=== PATIENT | male | born 1945 | race Caucasian/White ===

== ENCOUNTER → 2018-01-23 09:54 | Outpatient (CLI) | payer MEDICARE, OTHER, SELFPAY ==
[2018-01-23 10:57] LABS: Add Manual Diff / Slide Review NO; Basophils Percent Auto 0.3 % (0-2); Eosinophils Percent Auto 1.5 % (2-4); Hematocrit 42.2 % (41-53); Hemoglobin 14.9 g/dL (13.5-17.5); Lymphocytes Percent Auto 30.8 % (25-40); Mean Corpuscular HGB Conc 35.3 % (30-36); Mean Corpuscular Hemoglobin 34.6 PG (26-34); Mean Corpuscular Volume 98.1 fL (80-100); Monocytes Percent Auto 11.3 % (3-14); Neutrophils Absolute Auto 4500 /uL (3000-5900); Neutrophils Percent Auto 56.1 % (50-75); Platelet Count 233 X10^3/uL (150-400); Red Cell Distribution Width 12.9 % (11.6-14.8); White Blood Cell Count 8.1 X10^3/uL (4.5-11.0)
[2018-01-23 11:10] LABS: Alanine Aminotransferase 28 IU/L (21-72); Albumin 4.7 g/dL (3.5-5.0); Albumin Globulin Ratio 1.6 (1.0-2.8); Alkaline Phosphatase 46 U/L (38-126); Aspartate Aminotransferase 25 IU/L (17-59); BUN Creatinine Ratio 16.3 (6-22); Bilirubin Total 0.5 mg/dL (0.2-1.3); Blood Urea Nitrogen 13 mg/dL (9-20); Calcium 9.6 mg/dL (8.4-10.2); Carbon Dioxide 22 mmol/L (22-32); Chloride 101 mmol/L (98-107); Cholesterol 156 mg/dL (140-199); Estimated Glomerular Filt Rate > 60.0 mL/min (>60); Glucose 97 mg/dL (80-110); HDL Cholesterol 64 mg/dL (40-60); HEMOLYSIS < 15 (0-50); LDL Cholesterol Calculated 73 mg/dL (<100); Potassium 3.8 mmol/L (3.4-5.1); Sodium 137 mmol/L (137-145); Total Protein 7.7 g/dL (6.3-8.2); Triglycerides 93 mg/dL (35-150)
[2018-01-23 12:10] LABS: Appearance Urine UA CLEAR; Bilirubin Urine UA NEGATIVE (NEGATIVE); Color Urine UA YELLOW; Glucose Urine UA NEGATIVE (Normal); Ketones Urine UA NEGATIVE (NEGATIVE); Leukocyte Esterase Urine UA NEGATIVE (NEGATIVE); Nitrite Urine UA Negative (Negative); Occult Blood Urine UA NEGATIVE (Negative); Protein Urine UA NEGATIVE (Negative); Urobilinogen Urine UA 0.2 E.U./dL (0.2)
== END ==
PROVIDERS: Family Provider Family Medicine; PCP Family Medicine; Visit Provider Family Medicine
DX: I10 Essential (primary) hypertension (principal); E78.2 Mixed hyperlipidemia; Z51.81 Encounter for therapeutic drug level monitoring
CPT/HCPCS: 36415; 80053; 80061; 81003; 84443; 85025

== ENCOUNTER → 2018-04-19 10:26 | Outpatient (CLI) | payer MEDICARE, OTHER, SELFPAY ==
[2018-04-19 11:05] LABS: Add Manual Diff / Slide Review NO; Basophils Percent Auto 0.3 % (0-2); Eosinophils Percent Auto 0.8 % (2-4); Hematocrit 43.7 % (41-53); Hemoglobin 15.3 g/dL (13.5-17.5); Lymphocytes Percent Auto 24.5 % (25-40); Mean Corpuscular Hemoglobin 34.4 PG (26-34); Mean Corpuscular Volume 98.2 fL (80-100); Monocytes Percent Auto 10.1 % (3-14); Neutrophils Absolute Auto 6200 /uL (3000-5900); Neutrophils Percent Auto 64.3 % (50-75); Platelet Count 249 X10^3/uL (150-400); Red Blood Cell Count 4.45 X10^6/uL (4.5-5.9); Red Cell Distribution Width 13.1 % (11.6-14.8); White Blood Cell Count 9.6 X10^3/uL (4.5-11.0)
[2018-04-19 11:13] LABS: Alanine Aminotransferase 24 IU/L (21-72); Albumin 4.9 g/dL (3.5-5.0); Albumin Globulin Ratio 1.7 (1.0-2.8); Alkaline Phosphatase 48 U/L (38-126); Aspartate Aminotransferase 23 IU/L (17-59); BUN Creatinine Ratio 14.4 (6-22); Bilirubin Total 0.5 mg/dL (0.2-1.3); Blood Urea Nitrogen 13 mg/dL (9-20); Calcium 9.8 mg/dL (8.4-10.2); Carbon Dioxide 25 mmol/L (22-32); Chloride 102 mmol/L (98-107); Cholesterol 156 mg/dL (140-199); Estimated Glomerular Filt Rate > 60.0 mL/min (>60); Globulin 2.9 g/dL (1.7-4.1); Glucose 98 mg/dL (80-110); HDL Cholesterol 79 mg/dL (40-60); HEMOLYSIS < 15 (0-50); LDL Cholesterol Calculated 63 mg/dL (<100); Potassium 3.9 mmol/L (3.4-5.1); Sodium 142 mmol/L (137-145); Total Protein 7.8 g/dL (6.3-8.2); Triglycerides 68 mg/dL (35-150)
[2018-04-19 11:18] LABS: Appearance Urine UA CLEAR; Bilirubin Urine UA NEGATIVE (NEGATIVE); Color Urine UA YELLOW; Glucose Urine UA NEGATIVE (Normal); Ketones Urine UA NEGATIVE (NEGATIVE); Leukocyte Esterase Urine UA NEGATIVE (NEGATIVE); Nitrite Urine UA Negative (Negative); Occult Blood Urine UA NEGATIVE (Negative); Protein Urine UA NEGATIVE (Negative); Specific Gravity Urine UA 1.015 (1.000-1.035); Urobilinogen Urine UA 0.2 E.U./dL (0.2); pH Urine UA 6.5 (4.5-8.0)
[2018-04-19 11:49] LABS: Thyroid Stimulating Hormone 0.92 uIU/mL (0.47-4.68)
== END ==
PROVIDERS: PCP Family Medicine; Visit Provider Family Medicine
DX: E78.5 Hyperlipidemia, unspecified (principal)
CPT/HCPCS: 36415; 80053; 80061; 81003; 84443; 85025

== ENCOUNTER → 2018-11-15 10:11 | Outpatient (CLI) | payer MEDICARE, OTHER, SELFPAY ==
[2018-11-15 11:01] LABS: Add Manual Diff / Slide Review NO; Basophils Absolute Auto 0 /uL (0-100); Basophils Percent Auto 0.5 % (0-2); Eosinophils Absolute Auto 200 /uL (0-450); Eosinophils Percent Auto 2.5 % (2-4); Hematocrit 43.8 % (41-53); Hemoglobin 15.2 g/dL (13.5-17.5); Lymphocytes Absolute Auto 2600 /uL (1100-4500); Lymphocytes Percent Auto 33.3 % (25-40); Mean Corpuscular HGB Conc 34.8 % (30-36); Mean Corpuscular Hemoglobin 34.1 PG (26-34); Mean Corpuscular Volume 97.9 fL (80-100); Monocytes Absolute Auto 900 /uL (0-900); Neutrophils Absolute Auto 4100 /uL (1500-7000); Neutrophils Percent Auto 52.7 % (50-75); Platelet Count 225 X10^3/uL (150-400); Red Blood Cell Count 4.47 X10^6/uL (4.5-5.9); Red Cell Distribution Width 12.7 % (11.6-14.8); White Blood Cell Count 7.8 X10^3/uL (4.5-11.0)
[2018-11-15 11:05] LABS: Alanine Aminotransferase 23 IU/L (21-72); Albumin 4.6 g/dL (3.5-5.0); Albumin Globulin Ratio 1.6 (1.0-2.8); Alkaline Phosphatase 48 U/L (38-126); Aspartate Aminotransferase 22 IU/L (17-59); BUN Creatinine Ratio 18.8 (6-22); Bilirubin Total 0.6 mg/dL (0.2-1.3); Blood Urea Nitrogen 15 mg/dL (9-20); Calcium 9.5 mg/dL (8.4-10.2); Carbon Dioxide 24 mmol/L (22-32); Chloride 101 mmol/L (98-107); Cholesterol 159 mg/dL (140-199); Estimated Glomerular Filt Rate > 60.0 mL/min (>60); Globulin 2.9 g/dL (1.7-4.1); Glucose 95 mg/dL (80-110); HDL Cholesterol 65 mg/dL (40-60); HEMOLYSIS < 15 (0-50); LDL Cholesterol Calculated 73 mg/dL (<100); Potassium 3.6 mmol/L (3.4-5.1); Sodium 136 mmol/L (137-145); Total Protein 7.5 g/dL (6.3-8.2); Triglycerides 104 mg/dL (35-150)
[2018-11-15 11:28] LABS: Thyroid Stimulating Hormone 1.04 uIU/mL (0.47-4.68)
== END ==
PROVIDERS: PCP Family Medicine; Visit Provider Family Medicine
DX: E78.2 Mixed hyperlipidemia (principal); F41.9 Anxiety disorder, unspecified; F51.01 Primary insomnia; I10 Essential (primary) hypertension; Z79.899 Other long term (current) drug therapy
CPT/HCPCS: 36415; 80053; 80061; 84443; 85025

== ENCOUNTER → 2019-05-20 11:00 | Outpatient (CLI) | payer MEDICARE, OTHER, SELFPAY ==
[2019-05-20 12:05] LABS: Add Manual Diff / Slide Review NO; Basophils Absolute Auto 0 /uL (0-100); Basophils Percent Auto 0.3 % (0-2); Eosinophils Absolute Auto 200 /uL (0-450); Eosinophils Percent Auto 2.7 % (2-4); Hematocrit 43.6 % (41-53); Hemoglobin 15.4 g/dL (13.5-17.5); Lymphocytes Absolute Auto 2600 /uL (1100-4500); Lymphocytes Percent Auto 30.7 % (25-40); Mean Corpuscular HGB Conc 35.2 % (30-36); Mean Corpuscular Hemoglobin 34.6 PG (26-34); Mean Corpuscular Volume 98.3 fL (80-100); Monocytes Absolute Auto 1000 /uL (0-900); Monocytes Percent Auto 11.6 % (3-14); Neutrophils Absolute Auto 4600 /uL (1500-7000); Neutrophils Percent Auto 54.7 % (50-75); Platelet Count 236 X10^3/uL (150-400); Red Blood Cell Count 4.44 X10^6/uL (4.5-5.9); Red Cell Distribution Width 12.9 % (11.6-14.8); White Blood Cell Count 8.3 X10^3/uL (4.5-11.0)
[2019-05-20 12:33] LABS: Alanine Aminotransferase 28 IU/L (<50); Albumin 4.9 g/dL (3.5-5.0); Albumin Globulin Ratio 1.7 (1.0-2.8); Alkaline Phosphatase 48 U/L (38-126); Aspartate Aminotransferase 30 IU/L (17-59); BUN Creatinine Ratio 16.3 (6-22); Bilirubin Total 0.7 mg/dL (0.2-1.3); Blood Urea Nitrogen 13 mg/dL (9-20); Calcium 9.7 mg/dL (8.4-10.2); Carbon Dioxide 23 mmol/L (22-32); Chloride 102 mmol/L (98-107); Cholesterol 177 mg/dL (140-199); Estimated Glomerular Filt Rate > 60.0 mL/min (>60); Globulin 2.9 g/dL (1.7-4.1); Glucose 100 mg/dL (80-110); HDL Cholesterol 65 mg/dL (40-60); HEMOLYSIS < 15 (0-50); LDL Cholesterol Calculated 86 mg/dL (<100); Potassium 3.6 mmol/L (3.4-5.1); Sodium 137 mmol/L (137-145); Total Protein 7.8 g/dL (6.3-8.2); Triglycerides 130 mg/dL (35-150)
[2019-05-20 12:57] LABS: Thyroid Stimulating Hormone 1.27 uIU/mL (0.47-4.68)
== END ==
PROVIDERS: PCP Family Medicine; Visit Provider Family Medicine
DX: E78.2 Mixed hyperlipidemia (principal); F41.9 Anxiety disorder, unspecified; F51.01 Primary insomnia; I10 Essential (primary) hypertension; Z79.899 Other long term (current) drug therapy
CPT/HCPCS: 36415; 80053; 80061; 84443; 85025

== ENCOUNTER → 2019-11-21 10:02 | Outpatient (CLI) | payer MEDICARE, SELFPAY ==
[2019-11-21 12:00] LABS: Add Manual Diff / Slide Review NO; Basophils Absolute Auto 0 /uL (0-100); Basophils Percent Auto 0.3 % (0-2); Eosinophils Absolute Auto 200 /uL (0-450); Eosinophils Percent Auto 1.6 % (2-4); Hematocrit 45.1 % (41-53); Lymphocytes Absolute Auto 2500 /uL (1100-4500); Mean Corpuscular HGB Conc 35.5 % (30-36); Mean Corpuscular Hemoglobin 34.6 PG (26-34); Mean Corpuscular Volume 97.3 fL (80-100); Monocytes Absolute Auto 1100 /uL (0-900); Monocytes Percent Auto 11.4 % (3-14); Neutrophils Absolute Auto 5900 /uL (1500-7000); Neutrophils Percent Auto 60.7 % (50-75); Platelet Count 236 X10^3/uL (150-400); Red Blood Cell Count 4.64 X10^6/uL (4.5-5.9); Red Cell Distribution Width 13.2 % (11.6-14.8); White Blood Cell Count 9.7 X10^3/uL (4.5-11.0)
[2019-11-21 12:23] LABS: Alanine Aminotransferase 27 IU/L (<50); Albumin 4.9 g/dL (3.5-5.0); Albumin Globulin Ratio 1.5 (1.0-2.8); Alkaline Phosphatase 52 U/L (38-126); Aspartate Aminotransferase 31 IU/L (17-59); BUN Creatinine Ratio 13.8 (6-22); Bilirubin Total 0.6 mg/dL (0.2-1.3); Blood Urea Nitrogen 12 mg/dL (9-20); Calcium 10.1 mg/dL (8.4-10.2); Carbon Dioxide 22 mmol/L (22-32); Chloride 103 mmol/L (98-107); Cholesterol 163 mg/dL (140-199); Estimated Glomerular Filt Rate > 60.0 mL/min (>60); Globulin 3.2 g/dL (1.7-4.1); Glucose 97 mg/dL (80-110); HDL Cholesterol 54 mg/dL (40-60); HEMOLYSIS < 15 (0-50); LDL Cholesterol Calculated 76 mg/dL (<100); Potassium 4.1 mmol/L (3.4-5.1); Sodium 137 mmol/L (137-145); Total Protein 8.1 g/dL (6.3-8.2); Triglycerides 165 mg/dL (35-150)
[2019-11-21 12:50] LABS: Prostate Specific Antigen Scrn 4.42 ng/mL (0.1-4.0)
== END ==
PROVIDERS: PCP Family Medicine; Referring Provider Family Medicine; Visit Provider Family Medicine
DX: E78.2 Mixed hyperlipidemia (principal); I10 Essential (primary) hypertension; R97.20 Elevated prostate specific antigen [PSA]
CPT/HCPCS: 36415; 80053; 80061; 85025; G0103

== ENCOUNTER 2020-01-25 13:41 | Emergency (ER) | payer MEDICARE, SELFPAY ==
[2020-01-25 13:53] VITALS: BP 149/79; PULSE 110; RESP 16; TEMP 36.9; O2SAT 94; BMI 29.0
[2020-01-25 15:03] VITALS: BP 123/64; PULSE 64; TEMP 36.9; O2SAT 94
[2020-01-25] MEDS: AMOXICILLIN 250 MG CAPSULE 1000 MG PO (15:07)
--- NOTE | 2020-01-25 15:11 | PC.NURSE ---
Left jaw pain and swelling.
--- NOTE | 2020-01-25 15:29 | ED.DENTAL ---
HPI - Dental/Oral <BURKE Piña - Last Filed: 01/25/20 15:42> General Chief complaint: Dental/Oral Stated complaint: Pain in Lf side lower jaw swelling drawing Time Seen by Provider: 01/25/20 13:43 History of Present Illness HPI Narrative: 74yo male with a history of anxiety, HLD, presents to the emergency department for left facial pain and swelling. Patient states approximately 1 week ago he had part of his implant removed from his trauma, the dentist was unable to remove the completely due to it being imbedded into the bone. He was then referred to a oral surgeon which has appointment scheduled for February. Patient reports the pain is a dull aching with occasional sharp stabbing episodes that radiates up to his ear. This morning he woke up and noticed his left lip with swelling and he was worried that something was worsening. He seen his primary care provider 4 days ago and was given a small amount of Vicodin, he has been taking half a pill which has helped. Patient has also been taking ibuprofen which helps decrease the pain. Patient states last week he had an x-ray at the dentist which showed no obvious deformities or bone infection. Patient denies any fevers, difficulty speaking, limb weakness, chest pain, shortness of breath, dizziness, weakness, nausea, vomiting, diarrhea, or any other concerns. Related Data Home Medications Medication Instructions Recorded Confirmed multivitamin [Multiple Vitamins] 1 tab PO QDAY #0 tab 02/22/16 01/22/20 simethicone [Gas-X Extra Strength] 125 mg PO PRN PRN #0 02/22/16 01/22/20 Previous Rx's Medication Instructions Recorded amlodipine 10 mg-valsartan 160 1 tab PO DAILY #90 tab 11/29/19 mg-hydrochlorothiazide 25 mg tablet famciclovir 250 mg tablet 250 - 500 mg PO QDAY #90 tab 11/29/19 fenofibrate 160 mg tablet 160 mg PO DAILY #90 tab 11/29/19 zolpidem 10 mg tablet See Rx Instructions .ROUTE 11/29/19 .COMPLEX #60 tablet alprazolam 1 mg tablet See Rx Instructions .ROUTE 12/18/19 .COMPLEX #30 tab amoxicillin 500 mg PO Q8H 3 Days #9 cap 01/25/20 hydrocodone-acetaminophen [[place]] 1 tab PO Q8H PRN #6 tab 01/25/20 meloxicam 7.5 mg PO DAILY #6 tab 01/25/20 Allergies Allergy/AdvReac Type Severity Reaction Status Date / Time No Known Drug Allergies Allergy Verified 01/22/20 14:03 Review of Systems <BURKE Piña - Last Filed: 01/25/20 15:42> Review of Systems Narrative: REVIEW OF SYSTEMS: GENERAL: Denies fever or chills. HENT: No head trauma. Complains of left lower tooth pain and left lower lip swelling, see HPI. EYES: No vision changes. CARDIOVASCULAR: No chest pain or syncope. RESPIRATORY: No shortness of breath or cough. GASTROINTESTINAL: No nausea, vomiting, diarrhea, or constipation. MUSCULOSKELETAL: No pain, weakness, or deformities. INTEGUMENTARY: No rash, lesions, or pruritus. NEURO: No numbness or tingling. PSYCH: No behavior or mood changes. Patient History <BURKE Piña - Last Filed: 01/25/20 15:42> Medical History Anxiety (Chronic 2005) Dental implant pain (Acute) Hemorrhoids (Resolved 1966) Herpes (Chronic 2004) Hyperlipemia (Chronic Unknown) Hypertension (Chronic Unknown) Inguinal hernia (Resolved ~02/2016) Skin cancer (Resolved 2014) Surgical History Hx of hernia repair (Resolved 05/2016) Family History Mother Cancer Social History Smoking Status: Current every day smoker Tobacco: How many years used: 60 alcohol intake: current (6 pack of beer per day) Smoking Status: Current every day smoker tobacco type: cigarettes alcohol intake frequency: 3 or more drinks per day Alcohol type: beer Substance Use Type: marijuana Exam <BURKE Piña - Last Filed: 01/25/20 15:42> Initial Vital Signs Initial Vital Signs: Vital Signs Temperature 98.4 F 01/25/20 13:53 Pulse Rate 110 H 01/25/20 13:53 Respiratory Rate 16 01/25/20 13:53 Blood Pressure 149/79 H 01/25/20 13:53 Pulse Oximetry 94 01/25/20 13:53 PHYSICAL EXAMINATION: GENERAL: Well groomed, alert, and cooperative. Rambling speech, Answers questions promptly and appropriately. Vital signs noted. HENT: Normocephalic, atraumatic. Left lower gingiva erythematous at approximate tooth #19, implant visualized. Minor amount of left lower cheek swelling, moderate amount of left sided lip swelling, increased erythema, tender to palpation. Left TM intact without erythema, crisp light reflex present. EYES: Conjunctiva pink, sclera white, no periorbital swelling. NECK: No lymphadenopathy. CHEST: Normal to inspection and without deformities. CARDIOVASCULAR: S1 and S2 sounds normal. Regular rate and rhythm, no murmurs, clicks, or bruits. No pedal edema. RESPIRATORY: Normal respiratory rate, trachea midline, airway patent. No stridor, nasal flaring or accessory muscle use. Lungs are clear in all johnson without wheeze, rhonchi, or crackles. MUSCULOSKELETAL: Normal gait and coordination. Equal tone and mass bilaterally. EXTREMITIES: CMS intact. Moves all extremities. SKIN: Warm, dry, soft, appropriate color for ethnicity. No lesions, rashes, or wounds. NEURO: Alert and Oriented X 3. Good coordination. No ataxia, or sensory deficits, or cognitive issues. PSYCH: Appropriate affect and mood. <Neo Rm DO - Last Filed: 01/25/20 18:59> Initial Vital Signs Initial Vital Signs: Vital Signs Temperature 98.4 F 01/25/20 13:53 Pulse Rate 110 H 01/25/20 13:53 Respiratory Rate 16 01/25/20 13:53 Blood Pressure 149/79 H 01/25/20 13:53 Pulse Oximetry 94 01/25/20 13:53 Scores <BURKE Piña - Last Filed: 01/25/20 15:42> NIH Stroke Scale Level of Conciousness: Alert, keenly responsive Ask month/age: Answers both questions correctly. Open/close eyes, close hand: Performs both tasks correctly Best gaze horizontal: Normal Visual johnson: No visual loss Facial palsy: Normal symetrical movement Left arm drift: No drift for full 10 sec Right arm drift: No drift for full 10 sec Left leg drift: No drift for full 10 sec Right leg drift: No drift for full 10 sec Limb ataxia: Absent Sensory on face/arms/legs: Normal, no sensory loss Best language: No aphasia, normal Dysarthria: Normal Extinction or inattention: No abnormality Total NIH Stroke scale score: 0 Course <BURKE Piña - Last Filed: 01/25/20 15:42> Course Course Narrative: Patient was given the initial dose of amoxicillin in the emergency department. He was extensively counseled about these of his pain medications. Follow-up was encouraged. Orders Ordered: Discontinued Medications Hydrocodone Bitart/Acetaminophen ([place] 5/325) 1 tab PO NOW ONE Stop: 01/25/20 14:45 Last Admin: 01/25/20 14:47 Dose: Not Given Documented by: FERMIN Amoxicillin (Trimox) 1,000 mg PO NOW ONE Stop: 01/25/20 14:48 Last Admin: 01/25/20 15:07 Dose: 1,000 mg Documented by: FERMIN Vital Signs Vital signs: Vital Signs - 8 hr 01/25/20 13:53 01/25/20 15:03 Temperature 98.4 F 98.4 F Pulse Rate 110 H 64 Respiratory Rate 16 Blood Pressure 149/79 H 123/64 Pulse Oximetry 94 94 <Neo Rm DO - Last Filed: 01/25/20 18:59> Orders Ordered: Discontinued Medications Hydrocodone Bitart/Acetaminophen ([place] 5/325) 1 tab PO NOW ONE Stop: 01/25/20 14:45 Last Admin: 01/25/20 14:47 Dose: Not Given Documented by: FERMIN Amoxicillin (Trimox) 1,000 mg PO NOW ONE Stop: 01/25/20 14:48 Last Admin: 01/25/20 15:07 Dose: 1,000 mg Documented by: FERMIN Vital Signs Vital signs: Vital Signs - 8 hr 01/25/20 13:53 01/25/20 15:03 Temperature 98.4 F 98.4 F Pulse Rate 110 H 64 Respiratory Rate 16 Blood Pressure 149/79 H 123/64 Pulse Oximetry 94 94 MDM - Dental/Oral <BURKE Piña - Last Filed: 01/25/20 15:42> Medical Records Attestation: I reviewed the patient's medical records. Lab Data Attestation: I reviewed the patient's lab results. MDM Narrative Medical decision making narrative: 74-year-old male presenting to the emergency department for left tooth pain and lip swelling. Given recent history, recent swelling, and increased pain, I suspect patient may have developed an infection at this time. Patient was started on amoxicillin. We discussed pain medication, he was discouraged from using frequent ibuprofen due to GI side effects. Patient was given a week of meloxicam to help control pain. He was given a very small dose of Vicodin for breakthrough pain, we discussed taking half of this and only when needed as a can cause unfortunate side effects and dependence. Patient was counseled not to drive with this medication. He was encouraged to follow up with his surgeon as scheduled. Return precautions given for new or worsening symptoms. Patient agreed to plan of care verbalized understanding. Discharge Plan Departure Patient Disposition: Home Clinical Impression: Dental infection Discharge Date/Time: 01/25/20 15:12 Instructions: DI for Dental Pain Activity Restrictions/Additional Instructions: Thank you for entrusting me with your care today. As discussed, I believe the swelling and pain in your lip is caused by an infection. I prescribed you antibiotics, please take these as directed. Take meloxicam daily for the next week, do not take ibuprofen with this medication. Use hydrocodone/acetaminophen, a half a pill every 4-6 hours as needed for severe pain. Do not take additional Tylenol/acetaminophen with this medication. [facility] in [place]. Keep your appointment with your dentist. Return emergency department for any new or worsening symptoms such as facial droop, limb weakness, chest pain, shortness of breath, or any other concerns. Prescriptions: New amoxicillin 500 mg capsule 500 mg PO Q8H 3 Days Qty: 9 RF: 0 meloxicam 7.5 mg tablet 7.5 mg PO DAILY Qty: 6 RF: 0 hydrocodone-acetaminophen [[place]] 5-325 mg tablet 1 tab PO Q8H PRN (Reason: pain) Qty: 6 RF: 0 No Action multivitamin [Multiple Vitamins] 1 EACH tablet 1 tab PO QDAY Qty: 0 RF: 0 simethicone [Gas-X Extra Strength] 125 MG capsule 125 mg PO PRN PRNQty: 0 RF: 0 alprazolam 1 mg tablet See Rx Instructions .ROUTE .COMPLEX Qty: 30 RF: 0 upnnrnydcd-yflzxlpkx-jyvahkfpl 10-160-25 mg tablet 1 tab PO DAILY Qty: 90 RF: 1 zolpidem 10 mg tablet See Rx Instructions .ROUTE .COMPLEX Qty: 60 RF: 0 famciclovir 250 mg tablet 250 - 500 mg PO QDAY Qty: 90 RF: 3 fenofibrate 160 mg tablet 160 mg PO DAILY Qty: 90 RF: 1 Referrals: Andrea Novak DO [Primary Care Provider] - <Neo Rm DO - Last Filed: 01/25/20 18:59> Cosign ED Attending Cosmoature Attestation: I was immediately available in the department for consultation. This documentation has been reviewed and I agree with assessment and plan. Supervised by Neo Rm DO
== END 2020-01-25 15:12 | disposition home or self-care (01) ==
PROVIDERS: Emergency Provider Nurse Practitioner; PCP Family Medicine
DX: K04.7 Periapical abscess without sinus (principal)
CPT/HCPCS: 99282; 99283

== ENCOUNTER 2020-02-02 07:54 | Emergency (ER) | payer MEDICARE, SELFPAY ==
[2020-02-02 08:04] VITALS: BP 143/84; PULSE 120; RESP 18; TEMP 36.9; O2SAT 95
--- NOTE | 2020-02-02 08:04 | ED.DENTAL ---
HPI - Dental/Oral General Chief complaint: Dental/Oral Stated complaint: Oral infection, swelling of jaw/neck Time Seen by Provider: 02/02/20 08:04 Source: patient Mode of arrival: Ambulatory Limitations: no limitations History of Present Illness HPI Narrative: The patient is here with swelling to the neck. He has recently had a left molar implant extracted, his dentist as referring him to a specialist to extract another implant. He was seen here several days ago with a dental infection, treated with amoxicillin. He has completed the course of amoxicillin. He now has the anterior neck edema. The anterior neck edema started with tingling in his left mouth. There was no lip or tongue edema. He has no difficulty swallowing. He has no dyspnea. He has no fever. He has no difficulty moving his neck. He has no difficulty moving his jaw. He is not having significant dental pain. He has no history of respiratory disease, cardiac disease, or diabetes. He does take Norvasc for hypertension. Related Data Home Medications Medication Instructions Recorded Confirmed multivitamin [Multiple Vitamins] 1 tab PO QDAY #0 tab 02/22/16 01/22/20 simethicone [Gas-X Extra Strength] 125 mg PO PRN PRN #0 02/22/16 01/22/20 Previous Rx's Medication Instructions Recorded amlodipine 10 mg-valsartan 160 1 tab PO DAILY #90 tab 11/29/19 mg-hydrochlorothiazide 25 mg tablet famciclovir 250 mg tablet 250 - 500 mg PO QDAY #90 tab 11/29/19 fenofibrate 160 mg tablet 160 mg PO DAILY #90 tab 11/29/19 zolpidem 10 mg tablet See Rx Instructions .ROUTE 11/29/19 .COMPLEX #60 tablet hydrocodone-acetaminophen [[place]] 1 tab PO Q8H PRN #6 tab 01/25/20 meloxicam 7.5 mg PO DAILY #6 tab 01/25/20 alprazolam 1 mg tablet See Rx Instructions .ROUTE 01/28/20 .COMPLEX #30 tab clindamycin HCl [Cleocin HCl] 300 mg PO TID 10 Days #30 cap 02/02/20 hydrocodone-acetaminophen [[place]] 1 tab PO Q4-6H PRN #10 tab 02/02/20 Allergies Allergy/AdvReac Type Severity Reaction Status Date / Time No Known Drug Allergies Allergy Verified 02/02/20 08:07 Review of Systems Review of Systems ROS Unobtainable: All systems reviewed & are unremarkable except as noted in HPI and below Constitutional Constitutional: Denies chills, Denies fever(s) and Denies weakness Eyes Comments: No eye discomfort ENT Ears, Nose, Mouth, and Throat: Denies dizziness Comments: See HPI. Cardiovascular Cardiovascular: Denies chest pain, Denies irregular heart rhythm, Denies lightheadedness and Denies dyspnea Respiratory Respiratory: Denies cough, Denies dyspnea and Denies wheezing Gastrointestinal Gastrointestinal: Denies abdominal pain, Denies diarrhea, Denies nausea and Denies vomiting Genitourinary Comments: No urinary complaints. Musculoskeletal Comments: No peripheral edema. Integumentary/Breasts Skin/Breast: Denies erythema, Denies rash and Denies wounds Neurologic Neurologic: Denies confusion, Denies dizziness and Denies weakness Psychiatric Psychiatric: Reports anxiety and Denies confusion Allergic/Immunologic Allergic/Immunologic: Denies wheezing Patient History Medical History Anxiety (Chronic 2005) Dental implant pain (Acute) Hemorrhoids (Resolved 1966) Herpes (Chronic 2004) Hyperlipemia (Chronic Unknown) Hypertension (Chronic Unknown) Inguinal hernia (Resolved ~02/2016) Skin cancer (Resolved 2014) Surgical History Hx of hernia repair (Resolved 05/2016) Family History Mother Cancer Social History Smoking Status: Current every day smoker Tobacco: How many years used: 60 alcohol intake: current (6 pack of beer per day) Smoking Status: Current every day smoker tobacco type: cigarettes alcohol intake frequency: 3 or more drinks per day Alcohol type: beer Substance Use Type: marijuana Exam Initial Vital Signs Initial Vital Signs: Vital Signs Temperature 98.4 F 02/02/20 08:04 Pulse Rate 120 H 02/02/20 08:04 Respiratory Rate 18 02/02/20 08:04 Blood Pressure 143/84 H 02/02/20 08:04 Pulse Oximetry 95 02/02/20 08:04 Const General: cooperative and well developed Nutritional Appearance: well nourished HENMT Face and sinus: other (Left mandible edema, no fluctuance.) Mouth: oral mucosae normal, lip normal and tongue normal Teeth and gingiva: other (No dental tenderness.) Throat: posterior oropharynx normal Eyes Conjunctivae: conjunctivae normal Sclera: sclerae normal Neck Other: Bilateral anterior neck edema. No palpable tenderness. No nuchal rigidity. Resp Auscultation: clear to auscultation bilaterally Cardio Rate: regular rate Rhythm: regular rhythm Heart Sounds: S1 normal, S2 normal, no click, no gallops, no murmurs and no rubs Pulses: normal peripheral pulses GI Palpation: soft and No tender Back/Spine/Pelvis Back: normal to inspection Skin General: no rashes or lesions noted Neuro General: patient alert, patient oriented x3, gait normal and no focal motor deficits Speech: speech normal Course Course Course Narrative: The maxillofacial CT was consistent with a left maxillary dental infection, based around the implant base in the left mandible. He has improved significantly with IV clindamycin. I discussed the case with Oral surgery,Dr Brady. Dr Brady has agreed to see the patient in his office. Orders Ordered: Discontinued Medications Sodium Chloride (Normal Saline 0.9%) 500 mls @ 1,000 mls/hr IV BOLUS ONE Stop: 02/02/20 09:18 Last Infusion: 02/02/20 09:59 Dose: 0 mls/hr Documented by: Admin: 02/02/20 09:04 Dose: 1,000 mls/hr Documented by: BYRON Clindamycin Phosphate (Cleocin) 900 mg in 50 mls @ 50 mls/hr IV NOW ONE Stop: 02/02/20 10:48 Last Infusion: 02/02/20 11:26 Dose: 0 mls/hr Documented by: Admin: 02/02/20 10:06 Dose: 50 mls/hr Documented by: GILMAR Dexamethasone 20 mg/ Sodium (Chloride) 52 mls @ 208 mls/hr IV NOW ONE Stop: 02/02/20 09:49 Last Infusion: 02/02/20 11:30 Dose: 0 mls/hr Documented by: Admin: 02/02/20 10:53 Dose: 208 mls/hr Documented by: SHOAIB Ketorolac Tromethamine (Toradol) 15 mg IV NOW ONE Stop: 02/02/20 10:09 Last Admin: 02/02/20 10:33 Dose: 15 mg Documented by: SHOAIB Vital Signs Vital signs: Vital Signs - 8 hr 02/02/20 12:27 Pulse Rate 84 Blood Pressure 114/65 Pulse Oximetry 94 MDM - Dental/Oral Lab Data Result diagrams: 02/02/20 08:12 02/02/20 08:12 Labs: Lab Results 02/02/20 02/02/20 Range/Units 08:12 08:12 WBC 12.9 H (4.5-11.0) X10^3/uL RBC 4.31 L (4.5-5.9) X10^6/uL Hgb 14.5 (13.5-17.5) g/dL Hct 41.5 (41-53) % MCV 96.3 (80-100) fL MCH 33.7 (26-34) PG MCHC 35.0 (30-36) % RDW 12.1 (11.6-14.8) % Plt Count 316 (150-400) X10^3/uL Neut % (Auto) 68.3 (50-75) % Lymph % (Auto) 17.8 L (25-40) % O'Brien % (Auto) 12.5 (3-14) % Eos % (Auto) 1.1 L (2-4) % Baso % (Auto) 0.3 (0-2) % Neut # (Auto) 8800 H (7086-1595) /uL Lymph # (Auto) 2300 (3531-4435) /uL O'Brien # (Auto) 1600 H (0-900) /uL Eos # (Auto) 100 (0-450) /uL Baso # (Auto) 0 (0-100) /uL Sodium 133 L (137-145) mmol/L Potassium 4.0 (3.4-5.1) mmol/L Chloride 99 (98-107) mmol/L Carbon Dioxide 24 (22-32) mmol/L BUN 12 (9-20) mg/dL Creatinine 0.67 (0.66-1.25) mg/dL Estimated GFR > 60.0 (>60) mL/min BUN/Creatinine Ratio 17.9 (6-22) Glucose 180 H (80-110) mg/dL Calcium 10.1 (8.4-10.2) mg/dL Imaging Data Maxillofacial CT: Radiologist's Impression: Davidson Carmen 74 M [address] [address] [address] Scan Report Signed Patient: Davidson Carmen [facility]#: [id number] : [id number]:[id number] Age/Sex: 74 / MDate of Service: 02/02/20 Loc: ED Accession Number: [id number] Procedure: CT facial bones w con Ordering Provider: Zach Shepard MD PROCEDURE: CT FACIAL BONES W CON INDICATIONS: Recent dental infection. Submandible and anterior neck edema TECHNIQUE: After the administration of intravenous contrast, 2.5 mm axial sections acquired from the mid-neck to the frontal sinuses, with coronal and sagittal reformats. For radiation dose reduction, the following was used: automated exposure control, adjustment of mA and/or kV according to patient size. COMPARISON: None. FINDINGS: Image quality: There is artifact associated with the metallic hardware, which is reduced with metal reduction reconstruction algorithm. Soft tissues: There is focal soft tissue swelling seen overlying the left mandible anteriorly and laterally. Scrutiny is given for a soft tissue abscess and none can be seen. Vascular: Visualized vascular structures appear patent throughout. Bony vascular foramina and canals appear normal. Bones: There is a left posterior mandibular implant seen. Adjacent to the implant, lucency is seen, as on series 6, image 15. Facial bones otherwise appear intact, without fractures, erosions, or destruction. Visualized portions of the skull base and auditory canals also appear normal. Sinuses: Paranasal sinuses are aerated without fluid levels, mucosal thickening, or mucoceles. Mastoid air cells are aerated. IMPRESSION: Soft tissue infection without associated soft tissue abscess seen along the left anterolateral mandible. Deep to this site, there is a left posterior mandible dental implant seen with bony lucency, which is presumed to be the cause of the affection. Dictated by: Elías Esqueda M.D. on 02/02/2020 at 8:24 Approved by: Elías Esqueda M.D. on 02/02/2020 at 8:27 Discharge Plan Departure Patient Disposition: Home Clinical Impression: Dental infection, Hyperglycemia Discharge Date/Time: 02/02/20 12:58 Instructions: Tooth Abscess Activity Restrictions/Additional Instructions: Clindamycin 3 mg 3 times daily for 10 days, this is the antibiotic. Use Tylenol or Advil as needed for pain. Hydrocodone every 4 hours as needed for added pain control. Contact Dr. Brady tomorrow to arrange follow-up., return here if you develop significant increase facial or neck pain, or develops difficulty breathing. Also follow-up with your doctor. Your glucose levels elevated. You have mild diabetes. Prescriptions: New clindamycin HCl [Cleocin HCl] 300 mg capsule 300 mg PO TID 10 Days Qty: 30 RF: 0 hydrocodone-acetaminophen [[place]] 5-325 mg tablet 1 tab PO Q4-6H PRN (Reason: pain) Qty: 10 RF: 0 No Action multivitamin [Multiple Vitamins] 1 EACH tablet 1 tab PO QDAY Qty: 0 RF: 0 simethicone [Gas-X Extra Strength] 125 MG capsule 125 mg PO PRN PRNQty: 0 RF: 0 alprazolam 1 mg tablet See Rx Instructions .ROUTE .COMPLEX Qty: 30 RF: 0 jbwmeydyzv-ylgeoiybq-tqcnuqgdp 10-160-25 mg tablet 1 tab PO DAILY Qty: 90 RF: 1 zolpidem 10 mg tablet See Rx Instructions .ROUTE .COMPLEX Qty: 60 RF: 0 famciclovir 250 mg tablet 250 - 500 mg PO QDAY Qty: 90 RF: 3 fenofibrate 160 mg tablet 160 mg PO DAILY Qty: 90 RF: 1 meloxicam 7.5 mg tablet 7.5 mg PO DAILY Qty: 6 RF: 0 hydrocodone-acetaminophen [[place]] 5-325 mg tablet 1 tab PO Q8H PRN (Reason: pain) Qty: 6 RF: 0 Referrals: José Miguel Brady DMD [Physician] - Andrea Novak DO [Primary Care Provider] -
--- NOTE | 2020-02-02 08:11 | DI.CT.S_ITS ---
PROCEDURE: CT FACIAL BONES W CON INDICATIONS: Recent dental infection. Submandible and anterior neck edema TECHNIQUE: After the administration of intravenous contrast, 2.5 mm axial sections acquired from the mid-neck to the frontal sinuses, with coronal and sagittal reformats. For radiation dose reduction, the following was used: automated exposure control, adjustment of mA and/or kV according to patient size. COMPARISON: None. FINDINGS: Image quality: There is artifact associated with the metallic hardware, which is reduced with metal reduction reconstruction algorithm. Soft tissues: There is focal soft tissue swelling seen overlying the left mandible anteriorly and laterally. Scrutiny is given for a soft tissue abscess and none can be seen. Vascular: Visualized vascular structures appear patent throughout. Bony vascular foramina and canals appear normal. Bones: There is a left posterior mandibular implant seen. Adjacent to the implant, lucency is seen, as on series 6, image 15. Facial bones otherwise appear intact, without fractures, erosions, or destruction. Visualized portions of the skull base and auditory canals also appear normal. Sinuses: Paranasal sinuses are aerated without fluid levels, mucosal thickening, or mucoceles. Mastoid air cells are aerated. IMPRESSION: Soft tissue infection without associated soft tissue abscess seen along the left anterolateral mandible. Deep to this site, there is a left posterior mandible dental implant seen with bony lucency, which is presumed to be the cause of the affection. Dictated by: Elías Esqueda M.D. on 02/02/2020 at 8:24 Approved by: Elías Esqueda M.D. on 02/02/2020 at 8:27
--- NOTE | 2020-02-02 08:23 | PC.NURSE ---
Had recent removal of dental implant on left lower jaw. Patient noticed swelling in lip na dleft side of throat. Denies any difficulty swallowing or SOB.
[2020-02-02 08:34] LABS: Add Manual Diff / Slide Review NO; Basophils Absolute Auto 0 /uL (0-100); Basophils Percent Auto 0.3 % (0-2); Eosinophils Absolute Auto 100 /uL (0-450); Eosinophils Percent Auto 1.1 % (2-4); Hematocrit 41.5 % (41-53); Hemoglobin 14.5 g/dL (13.5-17.5); Lymphocytes Absolute Auto 2300 /uL (1100-4500); Lymphocytes Percent Auto 17.8 % (25-40); Mean Corpuscular Hemoglobin 33.7 PG (26-34); Mean Corpuscular Volume 96.3 fL (80-100); Monocytes Absolute Auto 1600 /uL (0-900); Monocytes Percent Auto 12.5 % (3-14); Neutrophils Absolute Auto 8800 /uL (1500-7000); Neutrophils Percent Auto 68.3 % (50-75); Platelet Count 316 X10^3/uL (150-400); Red Blood Cell Count 4.31 X10^6/uL (4.5-5.9); Red Cell Distribution Width 12.1 % (11.6-14.8); White Blood Cell Count 12.9 X10^3/uL (4.5-11.0)
[2020-02-02 08:36] LABS: BUN Creatinine Ratio 17.9 (6-22); Blood Urea Nitrogen 12 mg/dL (9-20); Calcium 10.1 mg/dL (8.4-10.2); Carbon Dioxide 24 mmol/L (22-32); Chloride 99 mmol/L (98-107); Estimated Glomerular Filt Rate > 60.0 mL/min (>60); Glucose 180 mg/dL (80-110); HEMOLYSIS < 15 (0-50); Sodium 133 mmol/L (137-145)
[2020-02-02] MEDS: SODIUM CHLORIDE 0.9% 500 ML 1000 ML IV (09:04)
[2020-02-02] MEDS: CLINDAMYCIN 900 MG/50 ML PIGGYBACK 50 MG IV (10:06)
[2020-02-02] MEDS: KETOROLAC 60 MG/2 ML VIAL 15 MG IV (10:33)
[2020-02-02] MEDS: dexAMETHasone 20 MG in SODIUM CHLORIDE 0.9% 50 ML 208 ML IV (10:53)
[2020-02-02 12:27] VITALS: BP 114/65; PULSE 84; O2SAT 94
== END 2020-02-02 12:58 | disposition home or self-care (01) ==
PROVIDERS: Emergency Provider Emergency Medicine; PCP Family Medicine
DX: K04.7 Periapical abscess without sinus (principal); R73.9 Hyperglycemia, unspecified; I10 Essential (primary) hypertension; F41.9 Anxiety disorder, unspecified
CPT/HCPCS: 36415; 70487; 80048; 85025; 96361; 96365; 96367; 96375; 99284; J1100; J1885; Q9967

== ENCOUNTER → 2020-02-24 09:34 | Outpatient (CLI) | payer MEDICARE, SELFPAY ==
[2020-02-24 10:22] LABS: Hematocrit 41.4 % (41-53); Hemoglobin 14.5 g/dL (13.5-17.5); Mean Corpuscular HGB Conc 35.1 % (30-36); Mean Corpuscular Hemoglobin 33.6 PG (26-34); Mean Corpuscular Volume 95.7 fL (80-100); Platelet Count 261 X10^3/uL (150-400); Red Blood Cell Count 4.32 X10^6/uL (4.5-5.9); Red Cell Distribution Width 12.7 % (11.6-14.8); White Blood Cell Count 7.5 X10^3/uL (4.5-11.0)
[2020-02-24 10:35] LABS: Hemoglobin A1C% w Est Avg Glu 5.8 % (4.0-6.0)
[2020-02-24 10:40] LABS: BUN Creatinine Ratio 19.2 (6-22); Blood Urea Nitrogen 15 mg/dL (9-20); Calcium 10.3 mg/dL (8.4-10.2); Carbon Dioxide 26 mmol/L (22-32); Chloride 101 mmol/L (98-107); Estimated Glomerular Filt Rate > 60.0 mL/min (>60); Glucose 102 mg/dL (80-110); HEMOLYSIS < 15 (0-50); Potassium 4.4 mmol/L (3.4-5.1); Sodium 138 mmol/L (137-145)
[2020-02-24 10:41] LABS: Neutrophils Absolute Manual 4350 /uL (3000-5900); RBC Morphology Normal Morphology; Total Cells Counted 100
== END ==
PROVIDERS: PCP Family Medicine; Referring Provider Family Medicine; Visit Provider Family Medicine
DX: K04.7 Periapical abscess without sinus (principal); T85.848A Pain due to other internal prosthetic devices, implants and grafts, initial encounter
CPT/HCPCS: 36415; 80048; 83036; 85025

== ENCOUNTER → 2020-08-14 11:05 | Outpatient (CLI) | payer MEDICARE, SELFPAY ==
[2020-08-14] MEDS: COVID-19 VACC #1, MRNA(MOD) 100 MCG/0.5 ML VIAL IM (11:11)
== END ==
PROVIDERS: PCP Family Medicine; Visit Provider Internal Medicine
DX: Z23 Encounter for immunization (principal)
CPT/HCPCS: 0011A; 91301

== ENCOUNTER → 2020-09-01 10:25 | Outpatient (CLI) | payer MEDICARE, SELFPAY ==
[2020-09-01 11:37] LABS: Add Manual Diff / Slide Review NO; Basophils Absolute Auto 0 /uL (0-100); Basophils Percent Auto 0.4 % (0-2); Eosinophils Absolute Auto 200 /uL (0-450); Eosinophils Percent Auto 2.1 % (2-4); Hematocrit 44.6 % (41-53); Hemoglobin 15.4 g/dL (13.5-17.5); Lymphocytes Absolute Auto 3400 /uL (1100-4500); Lymphocytes Percent Auto 35.8 % (25-40); Mean Corpuscular HGB Conc 34.5 % (30-36); Mean Corpuscular Hemoglobin 33.1 PG (26-34); Mean Corpuscular Volume 95.8 fL (80-100); Monocytes Absolute Auto 1100 /uL (0-900); Monocytes Percent Auto 11.5 % (3-14); Neutrophils Absolute Auto 4800 /uL (1500-7000); Neutrophils Percent Auto 50.2 % (50-75); Platelet Count 203 X10^3/uL (150-400); Red Blood Cell Count 4.66 X10^6/uL (4.5-5.9); Red Cell Distribution Width 13.7 % (11.6-14.8); White Blood Cell Count 9.5 X10^3/uL (4.5-11.0)
[2020-09-01 11:48] LABS: Hemoglobin A1C% w Est Avg Glu 5.7 % (4.0-6.0)
[2020-09-01 12:31] LABS: BUN Creatinine Ratio 16.7 (6-22); Blood Urea Nitrogen 15 mg/dL (9-20); Calcium 9.6 mg/dL (8.4-10.2); Carbon Dioxide 25 mmol/L (22-32); Chloride 107 mmol/L (98-107); Estimated Glomerular Filt Rate > 60.0 mL/min (>60); Glucose 96 mg/dL (80-110); HEMOLYSIS < 15 (0-50); Potassium 3.5 mmol/L (3.4-5.1); Sodium 137 mmol/L (137-145)
== END ==
PROVIDERS: PCP Family Medicine; Referring Provider Family Medicine; Visit Provider Family Medicine
DX: Z12.5 Encounter for screening for malignant neoplasm of prostate (principal); E78.2 Mixed hyperlipidemia; I10 Essential (primary) hypertension
CPT/HCPCS: 36415; 80048; 83036; 85025; G0103

== ENCOUNTER → 2020-09-11 09:47 | Outpatient (CLI) | payer MEDICARE, SELFPAY ==
[2020-09-11] MEDS: COVID-19 VACC #2, MRNA(MOD) 100 MCG/0.5 ML VIAL IM (09:56)
== END ==
PROVIDERS: PCP Family Medicine; Visit Provider Internal Medicine
DX: Z23 Encounter for immunization (principal)
CPT/HCPCS: 0012A; 91301

== ENCOUNTER → 2021-05-21 10:54 | Outpatient (CLI) | payer MEDICARE, SELFPAY ==
[2021-05-21] MEDS: COVID-19 VACC #3, MRNA(MOD) 50 MCG/0.25 ML VIAL IM (11:08)
== END ==
PROVIDERS: PCP Family Medicine; Visit Provider Internal Medicine
DX: Z23 Encounter for immunization (principal)
CPT/HCPCS: 0013A; 91301

== ENCOUNTER → 2021-08-31 09:18 | Outpatient (CLI) | payer MEDICARE, SELFPAY ==
[2021-08-31 10:02] LABS: Add Manual Diff / Slide Review NO; Basophils Absolute Auto 0 /uL (0-100); Basophils Percent Auto 0.5 % (0-2); Eosinophils Absolute Auto 200 /uL (0-450); Eosinophils Percent Auto 2.1 % (2-4); Hemoglobin 15.4 g/dL (13.5-17.5); Lymphocytes Absolute Auto 2100 /uL (1100-4500); Mean Corpuscular HGB Conc 35.1 % (30-36); Mean Corpuscular Hemoglobin 33.2 PG (26-34); Mean Corpuscular Volume 94.7 fL (80-100); Monocytes Absolute Auto 900 /uL (0-900); Monocytes Percent Auto 10.1 % (3-14); Neutrophils Absolute Auto 5600 /uL (1500-7000); Neutrophils Percent Auto 63.3 % (50-75); Platelet Count 192 X10^3/uL (150-400); Red Blood Cell Count 4.65 X10^6/uL (4.5-5.9); Red Cell Distribution Width 13.3 % (11.6-14.8); White Blood Cell Count 8.9 X10^3/uL (4.5-11.0)
[2021-08-31 10:15] LABS: Hemoglobin A1C% w Est Avg Glu 5.7 % (4.0-6.0)
[2021-08-31 10:17] LABS: Alanine Aminotransferase 15 IU/L (<50); Albumin 4.7 g/dL (3.5-5.0); Albumin Globulin Ratio 1.6 (1.0-2.8); Alkaline Phosphatase 30 U/L (38-126); Aspartate Aminotransferase 23 IU/L (17-59); BUN Creatinine Ratio 14.4 (6-22); Bilirubin Total 0.6 mg/dL (0.2-1.3); Blood Urea Nitrogen 14 mg/dL (9-20); Calcium 9.6 mg/dL (8.4-10.2); Carbon Dioxide 27 mmol/L (22-32); Chloride 104 mmol/L (98-107); Cholesterol 135 mg/dL (140-199); Estimated Glomerular Filt Rate > 60.0 mL/min (>60); Glucose 96 mg/dL (80-110); HDL Cholesterol 42 mg/dL (40-60); HEMOLYSIS < 15 (0-50); LDL Cholesterol Calculated 77 mg/dL (<100); Potassium 3.8 mmol/L (3.4-5.1); Sodium 137 mmol/L (137-145); Total Protein 7.7 g/dL (6.3-8.2); Triglycerides 78 mg/dL (35-150)
[2021-08-31 10:34] LABS: Free T3, Triiodothyronine Free 3.26 pg/mL (2.77-5.27); Free T4, Direct Thyroxine 1.29 ng/dL (0.78-2.19)
[2021-08-31 10:45] LABS: Prostate Specific Antigen Scrn 4.98 ng/mL (0.1-4.0)
[2021-08-31 10:47] LABS: Thyroid Stimulating Hormone 1.52 uIU/mL (0.47-4.68)
== END ==
PROVIDERS: PCP Family Medicine; Referring Provider Family Medicine; Visit Provider Family Medicine
DX: I10 Essential (primary) hypertension (principal); E78.2 Mixed hyperlipidemia; Z12.5 Encounter for screening for malignant neoplasm of prostate; R97.20 Elevated prostate specific antigen [PSA]
CPT/HCPCS: 36415; 80053; 80061; 83036; 84439; 84443; 84481; 85025; G0103

== ENCOUNTER → 2022-08-29 09:55 | Outpatient (CLI) | payer MEDICARE, SELFPAY ==
[2022-08-29 11:01] LABS: Add Manual Diff / Slide Review NO; Basophils Absolute Auto 0 /uL (0-100); Basophils Percent Auto 0.4 % (0-2); Eosinophils Absolute Auto 300 /uL (0-450); Eosinophils Percent Auto 3.3 % (2-4); Hematocrit 43.8 % (41-53); Hemoglobin 15.3 g/dL (13.5-17.5); Lymphocytes Absolute Auto 2200 /uL (1100-4500); Lymphocytes Percent Auto 28.8 % (25-40); Mean Corpuscular Hemoglobin 33.2 PG (26-34); Mean Corpuscular Volume 94.9 fL (80-100); Monocytes Absolute Auto 900 /uL (0-900); Monocytes Percent Auto 11.9 % (3-14); Neutrophils Absolute Auto 4300 /uL (1500-7000); Neutrophils Percent Auto 55.6 % (50-75); Platelet Count 193 X10^3/uL (150-400); Red Blood Cell Count 4.62 X10^6/uL (4.5-5.9); Red Cell Distribution Width 12.7 % (11.6-14.8); White Blood Cell Count 7.7 X10^3/uL (4.5-11.0)
[2022-08-29 11:26] LABS: Alanine Aminotransferase 16 IU/L (<50); Albumin 4.4 g/dL (3.5-5.0); Albumin Globulin Ratio 1.6 (1.0-2.8); Alkaline Phosphatase 38 U/L (38-126); Aspartate Aminotransferase 19 IU/L (17-59); BUN Creatinine Ratio 14.6 (6-22); Bilirubin Total 0.5 mg/dL (0.2-1.3); Blood Urea Nitrogen 12 mg/dL (9-20); Calcium 9.5 mg/dL (8.4-10.2); Carbon Dioxide 25 mmol/L (22-32); Chloride 103 mmol/L (98-107); Cholesterol 137 mg/dL (140-199); Estimated Glomerular Filt Rate > 60 mL/min (>60); Globulin 2.8 g/dL (1.7-4.1); Glucose 88 mg/dL (80-110); HDL Cholesterol 44 mg/dL (40-60); HEMOLYSIS < 15 (0-50); LDL Cholesterol Calculated 78 mg/dL (<100); Potassium 3.8 mmol/L (3.4-5.1); Sodium 139 mmol/L (137-145); Total Protein 7.2 g/dL (6.3-8.2); Triglycerides 77 mg/dL (35-150)
[2022-08-29 11:55] LABS: Prostate Specific Antigen Scrn 4.92 ng/mL (0.1-4.0)
== END ==
PROVIDERS: PCP Family Medicine; Referring Provider Family Medicine; Visit Provider Family Medicine
DX: E78.2 Mixed hyperlipidemia (principal); Z12.5 Encounter for screening for malignant neoplasm of prostate; I10 Essential (primary) hypertension; R97.20 Elevated prostate specific antigen [PSA]
CPT/HCPCS: 36415; 80053; 80061; 85025; G0103

== ENCOUNTER → 2023-12-12 08:31 | Outpatient (CLI) | payer MEDICARE, SELFPAY ==
[2023-12-12 10:00] LABS: Add Manual Diff / Slide Review NO; Basophils Absolute Auto 0 /uL (0-100); Basophils Percent Auto 0.3 % (0-2); Eosinophils Absolute Auto 300 /uL (0-450); Eosinophils Percent Auto 3.9 % (2-4); Hematocrit 41.2 % (41-53); Hemoglobin 14.5 g/dL (13.5-17.5); Lymphocytes Absolute Auto 2200 /uL (1100-4500); Lymphocytes Percent Auto 28.2 % (25-40); Mean Corpuscular HGB Conc 35.2 % (30-36); Mean Corpuscular Hemoglobin 33.5 PG (26-34); Mean Corpuscular Volume 95.1 fL (80-100); Monocytes Absolute Auto 1000 /uL (0-900); Monocytes Percent Auto 13.2 % (3-14); Neutrophils Absolute Auto 4300 /uL (1500-7000); Neutrophils Percent Auto 54.4 % (50-75); Platelet Count 196 X10^3/uL (150-400); Red Blood Cell Count 4.33 X10^6/uL (4.5-5.9); Red Cell Distribution Width 13.2 % (11.6-14.8); White Blood Cell Count 7.9 X10^3/uL (4.5-11.0)
[2023-12-12 10:35] LABS: Alanine Aminotransferase 13 IU/L (<50); Albumin 4.3 g/dL (3.5-5.0); Alkaline Phosphatase 37 U/L (38-126); Aspartate Aminotransferase 19 IU/L (17-59); BUN Creatinine Ratio 15.6 (6-22); Bilirubin Total 0.6 mg/dL (0.2-1.3); Blood Urea Nitrogen 12 mg/dL (9-20); Calcium 9.4 mg/dL (8.4-10.2); Carbon Dioxide 26 mmol/L (22-32); Chloride 104 mmol/L (98-107); Estimated Glomerular Filt Rate > 60 mL/min (>60); Globulin 2.4 g/dL (1.7-4.1); Glucose 93 mg/dL (80-110); HEMOLYSIS < 15 (0-50); Potassium 3.6 mmol/L (3.4-5.1); Sodium 136 mmol/L (137-145); Total Protein 6.7 g/dL (6.3-8.2)
[2023-12-12 10:36] LABS: Albumin Globulin Ratio 1.8 (1.0-2.8); Cholesterol 132 mg/dL (140-199); HDL Cholesterol 55 mg/dL (40-60); LDL Cholesterol Calculated 63 mg/dL (<100); Triglycerides 72 mg/dL (35-150)
[2023-12-12 11:02] LABS: Prostate Specific Antigen Scrn 5.19 ng/mL (0.1-4.0)
== END ==
PROVIDERS: PCP Family Medicine; Referring Provider Family Medicine; Visit Provider Family Medicine
DX: Z12.5 Encounter for screening for malignant neoplasm of prostate (principal); E78.2 Mixed hyperlipidemia; I10 Essential (primary) hypertension
CPT/HCPCS: 36415; 80053; 80061; 85025; G0103

== ENCOUNTER → 2024-12-06 11:38 | Outpatient (CLI) | payer MEDICARE, SELFPAY ==
[2024-12-06 12:14] LABS: Add Manual Diff / Slide Review NO; Basophils Absolute Auto 0 /uL (0-100); Basophils Percent Auto 0.4 % (0-2); Eosinophils Absolute Auto 300 /uL (0-450); Hematocrit 41.7 % (41-53); Hemoglobin 14.6 g/dL (13.5-17.5); Lymphocytes Absolute Auto 2200 /uL (1100-4500); Lymphocytes Percent Auto 32.7 % (25-40); Mean Corpuscular Hemoglobin 33.7 PG (26-34); Mean Corpuscular Volume 96.2 fL (80-100); Monocytes Absolute Auto 800 /uL (0-900); Monocytes Percent Auto 11.5 % (3-14); Neutrophils Absolute Auto 3500 /uL (1500-7000); Neutrophils Percent Auto 51.4 % (50-75); Platelet Count 199 X10^3/uL (150-400); Red Blood Cell Count 4.34 X10^6/uL (4.5-5.9); Red Cell Distribution Width 13.4 % (11.6-14.8); White Blood Cell Count 6.7 X10^3/uL (4.5-11.0)
[2024-12-06 12:36] LABS: Alanine Aminotransferase 15 IU/L (<50); Albumin 4.8 g/dL (3.5-5.0); Alkaline Phosphatase 42 U/L (38-126); Aspartate Aminotransferase 21 IU/L (17-59); BUN Creatinine Ratio 13.6 (6-22); Bilirubin Total 0.6 mg/dL (0.2-1.3); Blood Urea Nitrogen 11 mg/dL (9-20); Calcium 9.9 mg/dL (8.4-10.2); Carbon Dioxide 23 mmol/L (22-32); Chloride 102 mmol/L (98-107); Cholesterol 139 mg/dL (140-199); Estimated Glomerular Filt Rate > 60 mL/min (>60); Globulin 2.4 g/dL (1.7-4.1); Glucose 98 mg/dL (70-99); HDL Cholesterol 61 mg/dL (40-60); HEMOLYSIS < 15 (0-50); LDL Cholesterol Calculated 68 mg/dL (<100); Sodium 135 mmol/L (137-145); Total Protein 7.2 g/dL (6.3-8.2); Triglycerides 50 mg/dL (35-150)
[2024-12-06 13:09] LABS: Prostate Specific Antigen 5.92 ng/mL (0.10-4.00)
== END ==
PROVIDERS: PCP Family Medicine; Referring Provider Family Medicine; Visit Provider Family Medicine
DX: E78.2 Mixed hyperlipidemia (principal); R97.20 Elevated prostate specific antigen [PSA]; I10 Essential (primary) hypertension
CPT/HCPCS: 36415; 80053; 80061; 84153; 85025